=== PATIENT | female | born 1960 | race Caucasian/White ===

== ENCOUNTER → 2017-02-06 | Outpatient (CLI) | payer BC ==
--- NOTE | 2017-02-07 06:55 | MM ---
Reason for exam: screening (asymptomatic). Last mammogram was performed 5 years and 1 month ago. History: Patient is postmenopausal. Family history of breast cancer in maternal cousin. Taking estrogen for 1 year beginning at age 50. Physical Findings: A clinical breast exam by your physician is recommended on an annual basis and results should be correlated with mammographic findings. MG Screening Mammo w CAD Bilateral CC and MLO view(s) were taken. Prior study comparison: January 01, 2012, [facility] DIGITAL LEFT BREAST MAMMOGRAM w/CAD. December 25, 2011, bilateral digital screening mammo w/CAD. The breast tissue is heterogeneously dense. This may lower the sensitivity of mammography. There is chronic nodularity in the left breast. There is no dominant lesion. No significant changes when compared with prior studies. ASSESSMENT: Benign, BI-RAD 2 RECOMMENDATION: Routine screening mammogram of both breasts in 1 year.
== END | disposition home or self-care (01) ==
LOC: RADMAMWWP 11:04
PROVIDERS: ATTEND Internal Medicine
DX: Z12.31 Encounter for screening mammogram for malignant neoplasm of breast (principal)

== ENCOUNTER 2018-02-21 15:31 | Emergency (ER) | payer BC ==
[2018-02-21] MEDS ORDERED: ASPIRIN 81 MG PO STA (16:03)
[2018-02-21 16:21] LABS: Basophils % (A) 0 %; Eosinophils # (A) 0.2 k/uL (0-0.7); Eosinophils % (A) 3 %; HCT 40.2 % (34.0-46.0); HGB 13.4 gm/dL (11.4-16.0); Lymphocytes % (A) 39 %; MCH 30.1 pg (25.0-35.0); MCHC 33.4 g/dL (31.0-37.0); MCV 89.9 fL (80.0-100.0); Mean Platelet Volume 8.4; Monocytes # (A) 0.4 k/uL (0-1.0); Monocytes % (A) 5 %; Neutrophils # (A) 3.9 k/uL (1.3-7.7); Neutrophils % (A) 51 %; Platelet Count 209 k/uL (150-450); RBC 4.47 m/uL (3.80-5.40); RDW 13.2 % (11.5-15.5); WBC 7.7 k/uL (3.8-10.6)
--- NOTE | 2018-02-21 16:24 | ED ---
General Adult HPI - General Chief complaint: Chest Pain Stated complaint: Ear&Chest Pain Time Seen by Provider: 02/21/18 15:34 Source: EMS Mode of arrival: EMS Limitations: no limitations - History of Present Illness Initial comments: Patient is a 57-year-old female who presents with a chief complaint one week of intermittent chest pain. Patient states it feels sharp and is in the right side of her chest and right shoulder. Patient cannot identify an inciting incident. There are no aggravating or alleviating factors. Timing is been intermittent. Patient admits to lightheadedness, diaphoresis, and nausea. She does not have any previous history of RI. Patient states that she quit smoking 2 weeks ago but smoked a pack a day since she was 19 years old. - Related Data Previous Rx's Medication Instructions Recorded Aspirin [Adult Low Dose Aspirin EC] 81 mg PO DAILY 7 Days #7 tablet. 02/21/18 Allergies Allergy/AdvReac Type Severity Reaction Status Date / Time No Known Allergies Allergy Verified 02/21/18 16:26 Review of Systems ROS Statement: Those systems with pertinent positive or pertinent negative responses have been documented in the HPI. ROS Other: All systems not noted in ROS Statement are negative. Cardiovascular: Reports: chest pain Gastrointestinal: Reports: nausea Past Medical History Past Medical History: No Reported History History of Any Multi-Drug Resistant Organisms: None Reported Past Surgical History: No Surgical Hx Reported Past Psychological History: Anxiety, Depression Smoking Status: Former smoker Past Alcohol Use History: None Reported Past Drug Use History: None Reported General Exam Limitations: no limitations General appearance: alert, in no apparent distress Head exam: Present: atraumatic, normocephalic Eye exam: Present: normal appearance ENT exam: Present: normal exam Neck exam: Present: normal inspection Respiratory exam: Present: normal lung sounds bilaterally. Absent: respiratory distress Cardiovascular Exam: Present: regular rate, normal rhythm, other (tenderness to palpation of the right chest, reproductive of patients pain. ) GI/Abdominal exam: Present: soft. Absent: distended, tenderness Rectal exam: Present: deferred Extremities exam: Present: normal inspection Back exam: Present: normal inspection, paraspinal tenderness (right sided paraspinal tenderness to palpation ) Neurological exam: Present: alert, oriented X3 Psychiatric exam: Present: normal affect, normal mood Skin exam: Present: warm, dry, intact Course Vital Signs 02/21/18 02/21/1802/21/18 15:36 17:46 19:04 Temperature 98.1 F Pulse Rate 62 61 60 Respiratory 18 18 18 Rate Blood Pressure 132/81 114/72 149/79 O2 Sat by Pulse 100 99 98 Oximetry Medical Decision Making - Medical Decision Making Patient presents with a chief complaint of chest pain intermittently for one week. On initial evaluation, vitals are stable, patient in no acute distress. Pain is reproducible on palpation of the right chest and right paraspinal back musculature. Patient is however admitting to nausea, diaphoresis, and lightheadedness. Patient to be evaluated with basic labs including cardiac profile, liver profile, and lipase. EKG performed at 1552 shows normal sinus rhythm with a right bundle branch block, rate of 63 bpm. EKG is otherwise unremarkable and not concerning for acute ischemia. Patient does not regularly see a doctor, she smokes a pack a day, and is unsure whether or not she has high blood pressure, cholesterol, she denies any previous history of diabetes. 8 PM Lab evaluation this patient is unremarkable. Troponins are negative 2. Chest x-ray shows no acute process. On reevaluation, the patient states that she feels improved. Patient was given the option of admission versus close outpatient follow-up in 1-2 days to arrange for stress test. Patient and her state that she is able to follow up with primary care in 2 days and they are requesting discharge. Patient instructed to take 81 mg of aspirin daily until cleared by primary care. All parties are agreeable with this care plan. Patient was instructed to return to the emergency department if symptoms worsen or change. - Lab Data Result diagrams: 02/21/18 15:46 02/21/18 15:46 Lab Results 02/21/18 02/21/18 02/21/18 Range/Units 15:46 15:46 15:46 WBC 7.7 (3.8-10.6) k/uL RBC 4.47 (3.80-5.40) m/uL Hgb 13.4 (11.4-16.0) gm/dL Hct 40.2 (34.0-46.0) % MCV 89.9 (80.0-100.0) fL MCH 30.1 (25.0-35.0) pg MCHC 33.4 (31.0-37.0) g/dL RDW 13.2 (11.5-15.5) % Plt Count 209 (150-450) k/uL Neutrophils % 51 % Lymphocytes % 39 % Monocytes % 5 % Eosinophils % 3 % Basophils % 0 % Neutrophils # 3.9 (1.3-7.7) k/uL Lymphocytes # 3.0 (1.0-4.8) k/uL Monocytes # 0.4 (0-1.0) k/uL Eosinophils # 0.2 (0-0.7) k/uL Basophils # 0.0 (0-0.2) k/uL Sodium 140 (137-145) mmol/L Potassium 4.5 (3.5-5.1) mmol/L Chloride 109 H (98-107) mmol/L Carbon Dioxide 25 (22-30) mmol/L Anion Gap 6 mmol/L BUN 16 (7-17) mg/dL Creatinine 0.76 (0.52-1.04) mg/dL Est GFR (CKD-EPI)AfAm >90 (>60 ml/min/1.73 sqM) Est GFR (CKD-EPI)NonAf 89 (>60 ml/min/1.73 sqM) Glucose 89 (74-99) mg/dL Calcium 9.4 (8.4-10.2) mg/dL Total Bilirubin (0.2-1.3) mg/dL AST (14-36) U/L ALT (9-52) U/L Alkaline Phosphatase (38-126) U/L Troponin I (0.000-0.034) ng/mL NT-Pro-B Natriuret Pep 71 pg/mL Total Protein (6.3-8.2) g/dL Albumin (3.5-5.0) g/dL Lipase (23-300) U/L 02/21/18 02/21/18 02/21/18 Range/Units 15:46 15:46 19:07 WBC (3.8-10.6) k/uL RBC (3.80-5.40) m/uL Hgb (11.4-16.0) gm/dL Hct (34.0-46.0) % MCV (80.0-100.0) fL MCH (25.0-35.0) pg MCHC (31.0-37.0) g/dL RDW (11.5-15.5) % Plt Count (150-450) k/uL Neutrophils % % Lymphocytes % % Monocytes % % Eosinophils % % Basophils % % Neutrophils # (1.3-7.7) k/uL Lymphocytes # (1.0-4.8) k/uL Monocytes # (0-1.0) k/uL Eosinophils # (0-0.7) k/uL Basophils # (0-0.2) k/uL Sodium 139 (137-145) mmol/L Potassium 4.5 (3.5-5.1) mmol/L Chloride 109 H (98-107) mmol/L Carbon Dioxide 25 (22-30) mmol/L Anion Gap 5 mmol/L BUN 16 (7-17) mg/dL Creatinine 0.76 (0.52-1.04) mg/dL Est GFR (CKD-EPI)AfAm >90 (>60 ml/min/1.73 sqM) Est GFR (CKD-EPI)NonAf 89 (>60 ml/min/1.73 sqM) Glucose 89 (74-99) mg/dL Calcium 9.4 (8.4-10.2) mg/dL Total Bilirubin 0.3 (0.2-1.3) mg/dL AST 23 (14-36) U/L ALT 30 (9-52) U/L Alkaline Phosphatase 70 (38-126) U/L Troponin I <0.012 <0.012 (0.000-0.034) ng/mL NT-Pro-B Natriuret Pep pg/mL Total Protein 7.1 (6.3-8.2) g/dL Albumin 4.2 (3.5-5.0) g/dL Lipase 56 (23-300) U/L Disposition Clinical Impression: Chest pain Disposition: HOME SELF-CARE Condition: Good Instructions: Chest Pain (ED) Is patient prescribed a controlled substance at d/c from ED?: No Referrals: Osmany Gay MD [Primary Care Provider] - 1-2 days
[2018-02-21 16:28] LABS: Anion Gap 6 mmol/L; Blood Urea Nitrogen 16 mg/dL (7-17); Calcium 9.4 mg/dL (8.4-10.2); Carbon Dioxide 25 mmol/L (22-30); Chloride 109 mmol/L (98-107); Glucose 89 mg/dL (74-99); Potassium 4.5 mmol/L (3.5-5.1); Sodium 140 mmol/L (137-145)
[2018-02-21 16:41] LABS: ALT 30 U/L (9-52); AST 23 U/L (14-36); Albumin 4.2 g/dL (3.5-5.0); Alkaline Phosphatase 70 U/L (38-126); Anion Gap 5 mmol/L; Blood Urea Nitrogen 16 mg/dL (7-17); Calcium 9.4 mg/dL (8.4-10.2); Carbon Dioxide 25 mmol/L (22-30); Chloride 109 mmol/L (98-107); Glucose 89 mg/dL (74-99); Lipase 56 U/L (23-300); Potassium 4.5 mmol/L (3.5-5.1); Sodium 139 mmol/L (137-145); Total Bilirubin 0.3 mg/dL (0.2-1.3); Total Protein 7.1 g/dL (6.3-8.2)
--- NOTE | 2018-02-21 16:48 | XR ---
EXAMINATION TYPE: XR chest 2V DATE OF EXAM: 02/21/2018 COMPARISON: None INDICATION: Pain TECHNIQUE: Frontal and lateral views of the chest are obtained. FINDINGS: The heart size is normal. The pulmonary vasculature is normal. The lungs are clear. IMPRESSION: 1. No acute pulmonary process.
[2018-02-21 19:06] VITALS: PULSE 60
[2018-02-21 20:26] VITALS: BP 130/89; RESP 16; TEMP 98
== END 2018-02-21 20:51 | disposition home or self-care (01) ==
LOC: EC 15:31
DX: R07.9 Chest pain, unspecified (principal); R42 Dizziness and giddiness; R11.0 Nausea; R61 Generalized hyperhidrosis; Z87.891 Personal history of nicotine dependence
CPT/HCPCS: 36415; 71046; 80048; 80053; 83690; 83880; 84484; 85025; 93005; 99285

== ENCOUNTER 2018-05-01 15:38 | Emergency (ER) | payer BC ==
[2018-05-01 16:17] VITALS: BP 124/77; PULSE 78; RESP 16; TEMP 97.9
--- NOTE | 2018-05-01 16:47 | XR ---
EXAMINATION TYPE: XR ankle complete RT DATE OF EXAM: 05/01/2018 COMPARISON: NONE HISTORY: Ankle pain TECHNIQUE: 3 views FINDINGS: I see no fracture nor dislocation. Ankle mortise is anatomic. Joint spaces are normal. Ther e are no erosions. IMPRESSION: Negative right ankle exam.
[2018-05-01] MEDS ORDERED: ACET/COD 300 MG/30 MG STARTER PACK 6 TAB BTL PO STA (16:59)
[2018-05-01] MEDS ORDERED: KETOROLAC 60 MG/2 ML VIAL IM STA (16:59)
--- NOTE | 2018-05-01 17:02 | ED ---
Lower Extremity Injury HPI - General Chief Complaint: Extremity Injury, Lower Stated Complaint: Possible broken ankle Time Seen by Provider: 05/01/18 16:21 Source: patient, RN notes reviewed Mode of arrival: wheelchair Limitations: no limitations - History of Present Illness Initial Comments: 57-year-old female presents emergency Department chief complaint right ankle pain. Patient states that she twisted it couple days ago and has been more painful if she walks on all day. Patient states she has not taken any Tylenol or Motrin for the pain. He states most pain is along her ankle aspect but does radiate into her foot. Denies localized tenderness of her foot denies any prior injuries. Denies any paresthesias - Related Data Previous Rx's Medication Instructions Recorded Aspirin [Adult Low Dose Aspirin EC] 81 mg PO DAILY 7 Days #7 tablet. 02/21/18 Ibuprofen [Motrin] 600 mg PO Q8HR PRN #30 tab 05/01/18 Allergies Allergy/AdvReac Type Severity Reaction Status Date / Time No Known Allergies Allergy Verified 05/01/18 16:17 Review of Systems ROS Statement: Those systems with pertinent positive or pertinent negative responses have been documented in the HPI. ROS Other: All systems not noted in ROS Statement are negative. Past Medical History Past Medical History: No Reported History History of Any Multi-Drug Resistant Organisms: None Reported Past Surgical History: No Surgical Hx Reported Past Psychological History: Anxiety, Depression Smoking Status: Former smoker Past Alcohol Use History: None Reported Past Drug Use History: None Reported General Exam Limitations: no limitations General appearance: alert, in no apparent distress Respiratory exam: Present: normal lung sounds bilaterally. Absent: respiratory distress, wheezes, rales, rhonchi, stridor Cardiovascular Exam: Present: regular rate, normal rhythm, normal heart sounds. Absent: systolic murmur, diastolic murmur, rubs, gallop, clicks Extremities exam: Present: other (Right ankle there is tenderness to medial and lateral malleoli region with mild swelling no ecchymosis there is no localized foot tenderness foot and leg are neurovascular intact with cap refill less than 2 seconds no proximal tib-fib tenderness) Course Vital Signs 05/01/18 16:14 Temperature 97.9 F Pulse Rate 78 Respiratory 16 Rate Blood Pressure 124/77 O2 Sat by Pulse 99 Oximetry Medical Decision Making - Medical Decision Making 57-year-old female presented for right ankle pain. Patient has right ankle sprain conservative treatment will be started including rest, ice and elevation. Patient be prescribed anti-inflammatories. Return parameters were discussed. Disposition Clinical Impression: Right ankle sprain Disposition: TRANSFER TO PSYCH HOSP/UNIT Condition: Stable Instructions: Ankle Sprain (ED) Additional Instructions: Please return to the Emergency Department if symptoms worsen or any other concerns. Prescriptions: Ibuprofen [Motrin] 600 mg PO Q8HR PRN #30 tab PRN Reason: Pain Is patient prescribed a controlled substance at d/c from ED?: No Referrals: Osmany Gay MD [Primary Care Provider] - 1-2 days David Rojas DO [Doctor of Osteopathic Medicine] - 1-2 days Time of Disposition: 17:02
== END 2018-05-01 17:30 ==
LOC: EC 15:38
DX: S93.401A Sprain of unspecified ligament of right ankle, initial encounter (principal); Z87.891 Personal history of nicotine dependence; W20.8XXA Other cause of strike by thrown, projected or falling object, initial encounter
CPT/HCPCS: 73610; 99283; 96372; J1885

== ENCOUNTER → 2019-02-05 | Outpatient (CLI) | payer BC ==
--- NOTE | 2019-02-08 10:21 | MM ---
Reason for exam: screening (asymptomatic). Last mammogram was performed 2 years ago. History: Patient is postmenopausal. Family history of breast cancer in maternal cousin at age 62. Taking estrogen for 1 year beginning at age 50. Physical Findings: A clinical breast exam by your physician is recommended on an annual basis and results should be correlated with mammographic findings. MG Screening Mammo w CAD Bilateral CC and MLO view(s) were taken. Prior study comparison: February 06, 2017, bilateral MG screening mammo w CAD. January 01, 2012, [facility] DIGITAL LEFT BREAST MAMMOGRAM w/CAD. There are scattered fibroglandular densities. There is a stable left upper outer quadrant mass. No suspicious abnormality. No significant changes when compared with prior studies. ASSESSMENT: Benign, BI-RAD 2 RECOMMENDATION: Routine screening mammogram of both breasts in 1 year.
== END | disposition home or self-care (01) ==
LOC: RADMAMWWP 09:55
PROVIDERS: ATTEND Internal Medicine
DX: Z12.31 Encounter for screening mammogram for malignant neoplasm of breast (principal)
CPT/HCPCS: 77067

== ENCOUNTER → 2019-03-15 | Outpatient (CLI) | payer BC ==
--- NOTE | 2019-03-15 22:34 | MR ---
EXAMINATION TYPE: MR knee RT wo con DATE OF EXAM: 03/15/2019 COMPARISON: Outside right knee x-ray February 24, 2019 HISTORY: Rt knee pain TECHNIQUE: Multiplanar, multisequence images of the knee is performed without IV contrast. FINDINGS: MEDIAL MENISCUS: Anterior horn is intact without tear. Posterior horn shows increased signal with irr egularities along the inferior articular surface sagittal image 9 towards the central body. LATERAL MENISCUS: Anterior and posterior horns are intact without tear. CRUCIATE LIGAMENTS: The anterior and posterior cruciate ligaments are intact and unremarkable. COLLATERAL LIGAMENTS: The medial collateral ligament and lateral collateral ligament complex are inta ct and unremarkable. EXTENSOR MECHANISM: Visualized quadriceps and patellar tendons are intact. EFFUSION: There is moderate size suprapatellar joint effusion. POPLITEAL CYST: No popliteal/sanchez cyst. TRICOMPARTMENT SPACES: Mild narrowing medial tibiofemoral compartment. Mild tibial condylar spurring. CARTILAGE: Some cartilaginous thinning medial tibiofemoral compartment. No significant chondromalacia patella. BONE MARROW SIGNAL: No focal abnormal marrow signal is appreciated. OTHER: No additional significant abnormality is appreciated. IMPRESSION: 1. At least intrasubstance but suspected full-thickness tear posterior horn of medial meniscus. 2. Moderate-sized suprapatellar joint effusion. 3. Mild tricompartment degenerative changes.
== END | disposition home or self-care (01) ==
LOC: RADMRIMAIN 14:59
PROVIDERS: ATTEND Orthopaedic Surgery
DX: M17.11 Unilateral primary osteoarthritis, right knee (principal)

== ENCOUNTER → 2019-04-01 | Outpatient (CLI) | payer BC ==
[2019-04-01 10:54] LABS: Basophils % (A) 0 %; Eosinophils # (A) 0.2 k/uL (0-0.7); Eosinophils % (A) 3 %; HCT 42.5 % (34.0-46.0); Lymphocytes # (A) 2.6 k/uL (1.0-4.8); Lymphocytes % (A) 36 %; MCH 30.2 pg (25.0-35.0); MCV 91.7 fL (80.0-100.0); Mean Platelet Volume 7.2; Monocytes # (A) 0.3 k/uL (0-1.0); Monocytes % (A) 4 %; Neutrophils # (A) 3.9 k/uL (1.3-7.7); Neutrophils % (A) 55 %; Platelet Count 238 k/uL (150-450); RBC 4.63 m/uL (3.80-5.40); RDW 13.1 % (11.5-15.5); WBC 7.1 k/uL (3.8-10.6)
[2019-04-01 11:12] LABS: Potassium 4.9 mmol/L (3.5-5.1)
== END | disposition home or self-care (01) ==
LOC: LABPAT 09:54
PROVIDERS: ATTEND Orthopaedic Surgery
DX: Z01.812 Encounter for preprocedural laboratory examination (principal); M23.91 Unspecified internal derangement of right knee
CPT/HCPCS: 36415; 80051; 85025

== ENCOUNTER 2019-04-29 13:42 | Day surgery (SDC) | payer BC ==
[2019-04-27 09:49] VITALS: BMI 25.9
--- NOTE | 2019-04-28 15:27 | HP ---
HISTORY AND PHYSICAL DATE OF SURGERY: 04/29/2019. Susie Crow is a 58-year-old patient seen with progressive right knee pain. Options for treatment were discussed. She elected to proceed with right knee arthroscopy. Consent was obtained. PAST MEDICAL HISTORY: Depression. PAST SURGICAL HISTORY: Noncontributory. MEDICATIONS: Zoloft. ALLERGIES: None. SOCIAL HISTORY: She smokes cigarettes. PHYSICAL EVALUATION OF THE RIGHT KNEE: Range of motion is 0-125, mild to moderate effusion. Tenderness medial joint line. Positive medial Godfrey's. Ligaments stable. Hip rotation without pain. Distal neurovascular exam intact. Right knee radiographs, mild osteoarthritis. ] Right knee MRI, medial meniscal tear and effusion. IMPRESSION: 1. Internal derangement, right knee with medial meniscal tear. 2. Tobacco use. PLAN: Right knee arthroscopy with partial meniscectomy and debridement. MMODL / IJN: [id number] /
[~2019-04-29 13:42] MED LIST: DEXAMETHASONE SOD PHOSPHATE 10 MG/ML 1 ML VIAL IV ONE; HYDROmorphone 0.5 MG/0.5 ML SYRINGE IVP PRN; LACTATED RINGERS 1,000 ML IV SCH; LIDOCAINE 1% 20 ML VIAL (10MG/ML) FOR IV START INTRADERMA PRN; SCOPOLAMINE 1.5MG/72HR PATCH TRANSDERM ONE
[2019-04-29] MEDS ORDERED: ONDANSETRON 4 MG/2 ML VIAL IVP ONE (14:13)
[2019-04-29] MEDS ORDERED: fentaNYL (PF) 50 MCG/ML 2 ML AMP ONE (16:11)
[2019-04-29] MEDS ORDERED: PROPOFOL 10 MG/ML 20 ML VIAL IV ONE (16:11)
[2019-04-29] MEDS ORDERED: MIDAZOLAM 2 MG/2 ML VIAL ONE (16:11)
[2019-04-29] MEDS ORDERED: KETOROLAC 30 MG/ML 1 ML VIAL ONE (16:11)
[2019-04-29] MEDS ORDERED: LIDOCAINE 1% INJ 10MG/ML (20 ML MDV) ONE (16:11)
[2019-04-29] MEDS ORDERED: BUPIVACAINE (PF) 0.25% 30 ML VIAL INTRAARTIC ONE (16:19)
[2019-04-29 17:01] VITALS: TEMP 97.2
--- NOTE | 2019-04-29 17:01 | P.OP ---
Date of Procedure: 04/29/19 Preoperative Diagnosis: Internal derangement right knee Postoperative Diagnosis: 1. Tear medial meniscus right knee 2. Grade 2 chondromalacia medial femoral condyle right knee 3. Reactive synovitis medial, lateral and suprapatellar compartments right knee Procedure(s) Performed: 1. Arthroscopic partial medial meniscectomy right knee 2. Arthroscopic chondroplasty medial femoral condyle right knee 3. Arthroscopic partial synovectomy medial, lateral and suprapatellar compartments right knee Anesthesia: CHARLIEA, local Surgeon: David Rojas Estimated Blood Loss (ml): 5 Pathology: none sent Condition: stable Disposition: PACU Indications for Procedure: 58-year-old patient seen with progressive right knee pain. After treatment options were discussed, she elected to proceed with arthroscopy. Operative Findings: See description of procedure Description of Procedure: Patient was taken to the operative suite. Patient underwent a general anesthetic by the department of anesthesia. Patient was given preoperative antibiotics. The right lower extremity was placed in a well-padded arthroscopic leg lewis. The right leg was prepped and draped in the normal sterile orthopedic fashion. A lateral parapatellar and suprapatellar incision was made. Trochars were inserted. Arthroscopy was initiated. Suprapatellar pouch revealed diffuse thick reactive synovitis. The patellofemoral joint appeared articulate congruently. There was grade 1 chondromalacia of the patella with no osteochondral tears present. The scope was guided into the medial gutter. No loose bodies or plica were identified. The scope was then guided into the medial compartment. A medial parapatellar incision was made. Trocar inserted followed by probe. There was a complex tear posterior horn medial meniscus. There were grade 2 chondromalacia changes medial femoral condyle with osteochondral flap tears present. There was thick reactive synovitis anteriorly. I performed a partial medial meniscectomy getting down to stable meniscal tissue. I performed a chondroplasty of the medial femoral condyle down to stable osteochondral tissue. I performed a partial synovectomy decompressing the thick reactive synovitis. The residual meniscus was stable. The residual osteochondral surface was stable. There was good decompression of the synovitis. Scope and probe were then guided into the intercondylar notch. Cruciates were identified, probed and found to be stable. The scope and probe were then guided into lateral compartment. Lateral meniscus was probed and found to be stable. There was some mild grade 1 chondromalacia changes lateral tibial plateau. There was thick reactive synovitis anteriorly. Motorize shaver was introduced into lateral compartment and performed a partial synovectomy decompressing the reactive synovitis. There was good decompression of the synovitis. The scope was in guided back into the suprapatellar compartment. I introduced a motorized shaver into the suprapatellar compartment. I debrided some piecemeal fragments of meniscus I encountered. I performed a partial synovectomy decompressing the reactive synovitis. There was good decompression of the synovitis. Shaver was removed. I took one more look around the entire knee, no residual debris. Instruments were now removed from the joint. The joint was infiltrated with .25% Marcaine. Steri-Strips were applied to the port al sites. Sterile dressings were applied. The patient was placed into a SALMA hose. No tourniquet was utilized. The patient was awakened, transferred to a bed and taken to recovery stable satisfactory condition.
[2019-04-29 18:34] VITALS: RESP 16
[2019-04-29 18:35] VITALS: BP 111/71; PULSE 72
== END 2019-04-29 18:37 | disposition home or self-care (01) ==
LOC: OR 13:42
PROVIDERS: ATTEND Orthopaedic Surgery
DX: S83.231A Complex tear of medial meniscus, current injury, right knee, initial encounter (principal); S83.31XA Tear of articular cartilage of right knee, current, initial encounter; M94.262 Chondromalacia, left knee; M65.9 Synovitis and tenosynovitis, unspecified; F32.9 Major depressive disorder, single episode, unspecified; F17.210 Nicotine dependence, cigarettes, uncomplicated; Z79.899 Other long term (current) drug therapy; X58.XXXA Exposure to other specified factors, initial encounter
CPT/HCPCS: 29881; J2250; J1100; J2405; J0690; J2001; J3010; J1885; J2704

== ENCOUNTER → 2021-06-29 | Outpatient (CLI) | payer BC ==
--- NOTE | 2021-07-02 13:44 | MM ---
Reason for exam: screening (asymptomatic). Last mammogram was performed 2 years and 5 months ago. History: Patient is postmenopausal. Family history of breast cancer in maternal cousin at age 62. Taking estrogen for 1 year beginning at age 50. Physical Findings: A clinical breast exam by your physician is recommended on an annual basis and results should be correlated with mammographic findings. MG Screening Mammo w CAD Bilateral CC and MLO view(s) were taken. Prior study comparison: February 05, 2019, bilateral MG screening mammo w CAD. February 06, 2017, bilateral MG screening mammo w CAD. There are scattered fibroglandular densities. Finding: There is a 3 mm equal density (isodense), circumscribed lobulated mass located 8 cm from the nipple in the inner quadrant, posterior position of the right breast, enlarged. There is a chronic nodularity in the left breast. New finding since February 05, 2019 and February 06, 2017. ASSESSMENT: Incomplete: need additional imaging evaluation, BI-RAD 0 RECOMMENDATION: Special view mammogram of the right breast. If lesion persists on supplemental views, image directed ultrasound is recommended. [facility] will attempt to contact patient to return for supplemental views and ultrasound if indicated.
== END | disposition home or self-care (01) ==
LOC: RADMAMWWP 04-30 12:03
PROVIDERS: ATTEND Internal Medicine
DX: Z12.31 Encounter for screening mammogram for malignant neoplasm of breast (principal); Z80.3 Family history of malignant neoplasm of breast; Z78.0 Asymptomatic menopausal state
CPT/HCPCS: 77067

== ENCOUNTER → 2021-07-10 | Outpatient (CLI) | payer BC ==
--- NOTE | 2021-07-10 11:58 | MM ---
Reason for exam: additional evaluation requested from abnormal screening. Last mammogram was performed less than 1 month ago. History: Patient is postmenopausal. Family history of breast cancer in maternal cousin at age 62. Took estrogen for 1 year beginning at age 50. Physical Findings: Nurse did not find any significant physical abnormalities on exam. MG 3D Work Up W/Cad RT Spot compression CC and LM view(s) were taken of the right breast. Prior study comparison: June 29, 2021, bilateral MG screening mammo w CAD. February 05, 2019, bilateral MG screening mammo w CAD. There are scattered fibroglandular densities. Vague 5mm oval, circumscribed nodule persists 3 o'clock. These results were verbally communicated with the patient and result sheet given to the patient on 07/10/21. ASSESSMENT: Incomplete: need additional imaging evaluation, BI-RAD 0 RECOMMENDATION: Ultrasound of the right breast. (2-4 o'clock)
--- NOTE | 2021-07-10 11:59 | USB ---
Reason for exam: additional evaluation requested from abnormal screening. History: Patient is postmenopausal. Family history of breast cancer in maternal cousin at age 62. Took estrogen for 1 year beginning at age 50. US Breast Workup Limited RT Technologist: Tennille Warren Right limited breast ultrasound including focal area of concern, retroareolar and axilla demonstrates no cystic or solid lesion seen. Scanned 2-4 o'clock These results were verbally communicated with the patient and result sheet given to the patient on 07/10/21. ASSESSMENT: Probably benign, BI-RAD 3 RECOMMENDATION: Follow-up diagnostic mammogram of the right breast in 6 months.
== END | disposition home or self-care (01) ==
LOC: RADMAMWWP 10:23
PROVIDERS: ATTEND Internal Medicine
DX: R92.8 Other abnormal and inconclusive findings on diagnostic imaging of breast (principal); Z78.0 Asymptomatic menopausal state; Z80.3 Family history of malignant neoplasm of breast
CPT/HCPCS: 77061; 77065

== ENCOUNTER → 2024-03-09 | Outpatient (CLI) | payer BC ==
--- NOTE | 2024-03-11 08:58 | MM ---
Reason for Exam: Screening (asymptomatic). Last mammogram was performed 2 year(s) and 8 month(s) ago. Patient History: Menarche at age 16. First Full-Term at age 26. Left ovary removed at age 28. Right ovary removed at age 28. Hysterectomy at age 28. Postmenopausal. Estrogen, starting at age 50 for 1 year. Maternal cousin had breast cancer, age 62. Risk Values: Lala 5 year model risk: 1.5%. NCI Lifetime model risk: 7.0%. Prior Study Comparison: 02/05/2019 Bilateral Screening Mammogram, [facility]. 06/29/2021 Bilateral Screening Mammogram, [facility]. 07/10/2021 Right Diagnostic Mammogram, [facility]. Tissue Density: There are scattered areas of fibroglandular density. Findings: Analyzed By CAD. There is no suspicious group of microcalcifications or new suspicious mass in either breast. Stable benign chronic nodularity left breast unchanged from multiple prior exams. Chronic nodularity right breast also stable. Overall Assessment: Benign, BI-RAD 2 Management: Screening Mammogram of both breasts in 1 year. . Patient should continue monthly self-breast exams. A clinical breast exam by your physician is recommended on an annual basis. This exam should not preclude additional follow-up of suspicious palpable abnormalities. Note on Lala scores and lifetime risk: 1. A Lala score greater than 3% is considered moderate risk. If this is the case, consider specialist referral to assess eligibility for a risk reducing agent. 2. If overall lifetime risk for the development of breast cancer is 20% or higher, the patient may qualify for future screening with alternating mammogram and breast MRI. [facility], , 03/11/2024 8:56 AM. Electronically signed and approved by: Alex Guevara M.D. Radiologis
== END | disposition home or self-care (01) ==
LOC: RADMAMWWP 14:20
PROVIDERS: ATTEND Family Medicine
DX: Z12.31 Encounter for screening mammogram for malignant neoplasm of breast
CPT/HCPCS: 77063; 77067